=== PATIENT | male | born 1970 | race African-American/Black ===

== ENCOUNTER 2020-10-30 07:06 | Emergency (ER) | payer OTHER ==
[~2020-10-30] VITALS: Ht 175.3 cm; Wt 89.5 kg
[~2020-10-30 07:06] MED LIST: Diclofenac Sodium TP; GABA-585 PO; OXYC1TAB15 PO; PANT40TA77 PO
--- NOTE | 2020-10-30 08:03 | PHYS DOC ---
Past Medical History Past Medical History: No Pertinent History Past Surgical History: Other Additional Past Surgical Histo: FINGER Smoking Status: Never Smoker Alcohol Use: Occasionally General Adult EDM: Chief Complaint: FLU SYMPTOM HPI: HPI: Patient is a 50 year old male who presents with 5-6 days of cough, subjective fever, myalgias, headache, nausea/vomiting. Started to have some sore throat and hoarse voice for the past 2 days. He has been coughing up yellow phlegm. Occasionally the phlegm has a darker brown/black tinge to it. Occasionally has small specks of blood in it. He is not vaccinated for Covid. He denies any Covid contacts. He has not had a Covid test since symptoms started. He has some chest tightness only with coughing. Review of Systems: Review of Systems: Constitutional: Reports subjective fevers and chills. [] Eyes: Denies change in visual acuity. [] HENT: Reports nasal congestion and sore throat. [] Respiratory: Reports cough. +Chest tightness associated with cough. Denies shortness of breath. [] Cardiovascular: Denies palpitations or edema. [] GI: Reports nausea. Denies abdominal pain, vomiting, bloody stools or diarrhea. [] : Denies dysuria. [] Musculoskeletal: Reports diffuse myalgias. Denies back pain or joint pain. [] Integument: Denies rash. [] Neurologic: Reports headache.denies focal weakness or sensory changes. [] Endocrine: Denies polyuria or polydipsia. [] Lymphatic: Denies swollen glands. [] Psychiatric: Denies depression or anxiety. [] Heart Score: C/O Chest Pain: N/A Risk Factors: Risk Factors: DM, Current or recent (<one month) smoker, HTN, HLP, family history of CAD, obesity. Risk Scores: Score 0 - 3: 2.5% MACE over next 6 weeks - Discharge Home Score 4 - 6: 20.3% MACE over next 6 weeks - Admit for Clinical Observation Score 7 - 10: 72.7% MACE over next 6 weeks - Early Invasive Strategies Allergies: Allergies: Allergies Coded Allergies Type Severity Reaction Last Updated Verified No Known Drug Allergies 06/27/20 No Physical Exam: PE: Constitutional: Ill-appearing but not toxic. Mildly diaphoretic.. [] HENT: Normocephalic, atraumatic, bilateral external ears normal, oropharynx moist, no oral exudates, nose normal. [] Eyes: PERRLA, EOMI, conjunctiva normal, no discharge. [] Neck: Normal range of motion, no tenderness, supple, no stridor. [] Cardiovascular:Heart rate regular rhythm, no murmur [] Lungs & Thorax: Normal work of breathing. Sat 100%. Bilateral breath sounds clear to auscultation [] Abdomen: Soft. Nontender. No rebound or guarding.. [] Skin: Warm, dry, no erythema, no rash. [] Back: No tenderness, no CVA tenderness. [] Extremities: No tenderness, no cyanosis, no clubbing, ROM intact, no edema. [] Neurologic: Alert and oriented X 3, normal motor function, normal sensory function, no focal deficits noted. [] Psychologic: Affect normal, judgement normal, mood normal. [] EKG: EKG: SR 94. RAD. upsloping anterior ST segments. likely early repolarization. [] Radiology/Procedures: Radiology/Procedures: CXR [] Impression: [facility] [address] [place] [address] IMAGING REPORT Signed PATIENT: EZIO STONER ACCOUNT: [id number] : 1970 LOCATION: ER AGE: 50 SEX: M EXAM STATUS: REG ER ORD. PHYSICIAN: DEONNA RIZVI MD REASON: fever, cough PROCEDURE: CHEST AP ONLY XR CHEST 1V CLINICAL INDICATIONS: Reason: fever, cough COMPARISON: June 26, 2020. Findings: Bilateral interstitial lung infiltrates or pulmonary edema are seen. No pleural effusion or pneumothorax is seen. The heart size, pulmonary vasculature, mediastinum and both shane are stable. IMPRESSION: Bilateral interstitial lung infiltrates or pulmonary edema. Electronically signed by: Colten Hale MD (10/30/2020 8:18 AM) [id number] DICTATED and SIGNED BY: COLTEN HALE MD DATE: 10/30/20 [id number] Course & Med Decision Making: Course & Med Decision Making Pertinent Labs and Imaging studies reviewed. (See chart for details) Patient is a 50-year-old male with approximately 5 days of productive cough cough, subjective fever, myalgias. Certainly concerning for viral syndrome versus bacterial pneumonia. Will check labs including Covid swab, EKG, CXR. 0803 EKG SR, rate [address] segments anteriorly, likely early repolarization, but troponin added since we do not have a baseline EKG for comparison. 0841 CXR with mild bilateral interstitial infiltrates. COVID + on rapid swab. Mild leukopenia. Will not treat with abx at this time. His O2 sat is 100% and vitals are stable. He is stable for discharge at this time with expectant management. 09 Advanced Image Enhancement Disclaimer: Advanced Image Enhancement Disclaimer: This electronic medical record was generated, in whole or in part, using a voice recognition dictation system. Departure Departure Impression: Primary Impression: COVID-19 Disposition: HOME / SELF CARE / HOMELESS Condition: STABLE Referrals: NO PCP (PCP) Additional Instructions: You tested positive for Covid. You will need to self isolate for 10 days, and continue to isolate until you are 3 days without a fever and have improving symptoms without Tylenol or ibuprof en. In the meantime you can treat fevers and/or body aches with tylenol and ibuprofen. Please alternate between the two. -Tylenol 1000 mg every 6 hours (do not exceed 4000 mg in one day) -Ibuprofen 400 mg every 6 hours. Take with food. Do not take for more than 1 week. Unfortunately we do not have any proven treatments at this time. Hopefully this will improve on its own, but if you have difficulty breathing please return to emergency department for reevaluation. DEONNA RIZVI MD Oct 30, 2020 08:03
--- NOTE | 2020-10-30 08:21 | RAD ---
XR CHEST 1V CLINICAL INDICATIONS: Reason: fever, cough COMPARISON: June 26, 2020. Findings: Bilateral interstitial lung infiltrates or pulmonary edema are seen. No pleural effusion or pneumothorax is seen. The heart size, pulmonary vasculature, mediastinum and both shane are stable. IMPRESSION: Bilateral interstitial lung infiltrates or pulmonary edema. Electronically signed by: Austin Hale MD (10/30/2020 8:18 AM) [id number]
[2020-10-30 08:43] LABS: BASO % 0 % (0-3); EOS % 0 % (0-3); HEMATOCRIT 38.4 % (39.0-53.0); HEMOGLOBIN 12.5 g/dL (13.0-17.5); LYMPH # 0.8 x10^3/uL (1.0-4.8); LYMPH % 20 % (24-48); MEAN CORPUSCULAR HEMOGLOBIN 24 pg (25-35); MEAN CORPUSCULAR HGB CONC 33 g/dL (31-37); MEAN CORPUSCULAR VOLUME 72 fL (79-100); MONO # 0.6 x10^3/uL (0.0-1.1); MONO % 15 % (0-9); NEUT # 2.5 x10^3/uL (1.8-7.7); NEUT % 65 % (31-73); PLATELET COUNT 188 x10^3/uL (140-400); RED BLOOD COUNT 5.33 x10^6/uL (4.30-5.70); RED CELL DISTRIBUTION WIDTH 24.4 % (11.5-14.5); WHITE BLOOD COUNT 3.8 x10^3/uL (4.0-11.0)
[2020-10-30 08:53] LABS: CALCIUM 8.5 mg/dL (8.5-10.1); CREATININE 1.3 mg/dL (0.7-1.3); GFR 71.3; POTASSIUM 3.8 mmol/L (3.5-5.1)
[2020-10-30 08:59] LABS: ALBUMIN 3.6 g/dL (3.4-5.0); ALBUMIN/GLOBULIN RATIO 0.9 (1.0-1.7); TOTAL BILIRUBIN 0.5 mg/dL (0.2-1.0); TOTAL PROTEIN 7.8 g/dL (6.4-8.2)
[2020-10-30 09:17] LABS: ANISOCYTOSIS SLIGHT; HYPOCHROMIA SLIGHT; MICROCYTOSIS SLIGHT; PLT ESTIMATE ADEQUATE (ADEQUATE); POLYCHROMASIA SLIGHT; TEAR DROP CELLS OCC
[2020-10-30 09:19] LABS: OVALOCYTES OCC
[2020-10-30 10:06] VITALS: BP 153/90
== END 2020-10-30 10:16 | disposition home or self-care (01) ==
LOC: ER 07:06
DX: U07.1 COVID-19 (principal); R11.2 Nausea with vomiting, unspecified; J02.9 Acute pharyngitis, unspecified
CPT/HCPCS: 36415; 71045; 80053; 84484; 85025; 87426; 93005; 99285-25

== ENCOUNTER 2020-12-23 06:14 | Emergency (ER) | payer OTHER ==
[~2020-12-23] VITALS: Ht 175.3 cm; Wt 90.9 kg
--- NOTE | 2020-12-23 07:12 | RAD ---
Exam performed: Left fifth digit x-ray 3 views HISTORY: Pain and swelling. DATE OF SERVICE: 12/23/2020. COMPARISON: None available Findings and impression: AP, lateral and oblique views of the left fifth digit including AP view of the hand is obtained. Ther e is apparent joint space narrowing at the fifth distal interphalangeal joint which is perhaps appare nt due to slight flexion deformity seen on the lateral projection. This could be projectional or trau matic if there is a given history of such. There is no acute fracture. Diffuse soft tissue swelling i s seen. The remaining alignment appears preserved. No soft tissue foreign body identified. Electronically signed by: Nelly Lawrence MD (12/23/2020 7:10 AM) [facility]
[2020-12-23] MEDS ORDERED: NAPROXEN 500 MG TABLET PO ONE (07:30)
[2020-12-23] MEDS ORDERED: cloNIDine HCL 0.1 MG TABLET PO ONE (07:30)
[2020-12-23] MEDS ORDERED: NAPR-695 PO (07:38)
--- NOTE | 2020-12-23 07:39 | PHYS DOC ---
Past Medical History Past Medical History: No Pertinent History, Hypertension Additional Past Medical Histor: CHRONIC PAIN Past Surgical History: Other Additional Past Surgical Histo: FINGER Smoking Status: Never Smoker Alcohol Use: Occasionally Drug Use: None General Adult EDM: Chief Complaint: FINGER INJURY HPI: HPI: 50-year-old male presents with report of left little finger pain and swelling that has been ongoing intermittently for the past year. Patient reports he previously hit it while at work and has subsequently continued to reinjure the area. Patient reports now with some increased swelling that appears to make his finger deviate outward. Patient reports he has chronic issues with his legs and back for which he previously was prescribed Percocet. Patient reports he thinks he did not notice the pain in his finger because he was already taking the Percocet for his legs. Patient reports he does follow with orthopedics but has not talked to them about his finger yet. Denies any fever or chills. Review of Systems: Review of Systems: Constitutional: Denies fever or chills Eyes: Denies redness or eye pain HENT: Denies nasal congestion or sore throat Respiratory: Denies cough or shortness of breath Cardiovascular: Denies chest pain or palpitations GI: Denies abdominal pain, nausea, or vomiting : Denies dysuria or hematuria Musculoskeletal: Reports chronic leg pain and left pinky finger pain and swelling Integument: Denies rash or skin lesions Neurologic: Denies headache, focal weakness or sensory changes Complete systems were reviewed and found to be within normal limits, except as documented in this note. Heart Score: C/O Chest Pain: N/A Current Medications: Current Medications Medications (Trade) Dose Ordered Sig/[facility] Start Time Stop Time Status Last Admin Dose Admin Clonidine HCl (Catapres) 0.1 mg 1X ONCE 12/23/20 07:30 12/23/20 07:31 DC Naproxen (Naprosyn) 500 mg 1X ONCE 12/23/20 07:30 12/23/20 07:31 DC Allergies: Allergies: Allergies Coded Allergies Type Severity Reaction Last Updated Verified No Known Drug Allergies 06/27/20 No Physical Exam: PE: Constitutional: Well developed, well nourished, no acute distress, non-toxic appearance HENT: Normocephalic, atraumatic Eyes: Conjunctiva normal, no discharge Neck: Normal range of motion, supple Lungs & Thorax: No respiratory distress, equal chest rise and fall Skin: Warm, dry, no erythema, no rash Extremities: Left 5th finger PIP tenderness and pain, pain with ROM about joint, CR < 2 sec, left radial pulse +2 Neurologic: Alert and oriented X 3, no focal deficits noted Psychologic: Affect normal, judgment normal Current Patient Data: Vital Signs: Vital Signs Date Time Temp Pulse Resp B/P (MAP) Pulse Ox O2 Delivery O2 Flow Rate FiO2 12/23/20 06:15 98.0 91 20 219/148 (171) 98 Room Air 98.0 EKG: EKG: [] Radiology/Procedures: Radiology/Procedures: PROCEDURE: FINGER(S) LEFT Exam performed: Left fifth digit x-ray 3 views HISTORY: Pain and swelling. DATE OF SERVICE: 12/23/2020. COMPARISON: None available Findings and impression: AP, lateral and oblique views of the left fifth digit including AP view of the hand is obtained. There is apparent joint space narrowing at the fifth distal interphalangeal joint which is perhaps apparent due to slight flexion deformity seen on the lateral projection. This could be projectional or traumatic if there is a given history of such. There is no acute fracture. Diffuse soft tissue swelling is seen. The remaining alignment appears preserved. No soft tissue foreign body identified. Electronically signed by: Nelly Lawrence MD (12/23/2020 7:10 AM) [facility] Course & Med Decision Making: Course & Med Decision Making Pertinent Imaging studies reviewed. (See chart for details) Patient presents with report of pain and swelling to left pinky finger. Limb neurovascularly intact. Patient reports continued reinjury of PIP joint. X-ray obtained without acute fracture or dislocation. Soft tissue swelling noted. Naproxen provided. Splint applied. Patient also noted to have significantly elevated blood pressure upon arrival. Patient reports he did not take any of his medication this morning. Clonidine provided with some improvement. Patient advised to take his previously prescribed blood pressure medication upon returning home. Patient stable for discharge with outpatient follow-up with PCP/Orthopedics. Discussed findings and plan with patient, who acknowledges understanding and agreement. Jeet Disclaimer: Jeet Disclaimer: This electronic medical record was generated, in whole or in part, using a voice recognition dictation system. Splinting Splinting : Location: Left 5th finger Pre-Made Type: metal (aluminium finger splint) Pre-Proc Neuro Vasc Exam: normal Post-Proc Neuro Vasc Exam: normal, unchanged from pre-exam Departure Departure Impression: Primary Impression: Sprain of finger, left Qualified Codes: S63.637A - Sprain of interphalangeal joint of left little finger, initial encounter Additional Impressions: Arthritis Hypertension Qualified Codes: I10 - Essential (primary) hypertension Disposition: HOME / SELF CARE / HOMELESS Condition: STABLE Referrals: NO PCP (PCP) Patient Instructions: Arthritis, Nonspecific, Pjab-[id number], Finger Sprain, [id number], Hypertension, [id number] Additional Instructions: Please take your hypertension medication as prescribed. Follow closely with your doctor regarding any adjustment. Use finger splint for next week. Going forward may also use while at work to protect your finger. Scripts Naproxen (NAPROXEN) 375 Mg Tablet 375 MG PO TID PRN PRN for PAIN, #30 TAB Prov: EZIO CORDOBA DO 12/23/20 EZIO CORDOBA DO Dec 23, 2020 07:39
[2020-12-23 07:47] VITALS: BP 196/125
== END 2020-12-23 07:48 | disposition home or self-care (01) ==
LOC: ER 06:14
DX: S63.637A Sprain of interphalangeal joint of left little finger, initial encounter (principal); M19.042 Primary osteoarthritis, left hand; I10 Essential (primary) hypertension; G89.29 Other chronic pain; W22.8XXA Striking against or struck by other objects, initial encounter; Y93.89 Activity, other specified; Y92.69 Other specified industrial and construction area as the place of occurrence of the external cause; Y99.0 Civilian activity done for income or pay
CPT/HCPCS: 29130; 73140; 99283

== ENCOUNTER → 2021-05-28 | Outpatient (CLI) | payer OTHER ==
[~2021-05-28] MED LIST changes: +NAPR-695 PO
--- NOTE | 2021-05-28 14:17 | RAD ---
Exam Date: 05/28/2021 9:07 AM MRI LEFT LOWER EXTREMITY JOINT WITHOUT Indication: Reason: left knee pain / Spl. Instructions: / History: . TECHNIQUE: Routine multiplanar MR imaging of the knee was performed without contrast. FINDINGS: The body medial meniscus is extruded and demonstrates abnormal signal and morphology consistent with complex tearing. There is blunting of the body of the lateral meniscus consistent with a small radial tear. The anterior cruciate ligament, posterior cruciate ligament, medial collateral ligament, and lateral collateral ligament complex are intact. Patellofemoral extensor mechanism and popliteus tendon are w ithin normal limits. There is full-thickness chondral fissuring along the trochlear sulcus with mild subchondral degenerat leon marrow signal. Additional partial thickness chondral defects are seen in the patellofemoral comp artment. There is prominent diffuse chondral thinning in the medial compartment with extensive full- thickness or near full-thickness chondral loss. Cartilage in the lateral compartment is intact. Bone marrow demonstrates benign signal on all sequences. No acute fracture is seen. There is a large joint effusion.. There is no popliteal cyst. IMPRESSION: Complex tearing of the body medial meniscus with extrusion. Small radial tear involving the body of lateral meniscus. Extensive full-thickness or near full-thickness chondral loss in the medial compartment. Focal full- thickness chondral fissuring noted in the patellofemoral compartment. Large joint effusion noted. Electronically signed by: Servando Mcgraw MD (05/28/2021 2:14 PM) [id number]
== END ==
LOC: MRI 08:34
PROVIDERS: ATTEND Physician Assistant
DX: S83.232A Complex tear of medial meniscus, current injury, left knee, initial encounter (principal); S83.282A Other tear of lateral meniscus, current injury, left knee, initial encounter; M25.462 Effusion, left knee; M25.862 Other specified joint disorders, left knee; X58.XXXA Exposure to other specified factors, initial encounter; Y93.89 Activity, other specified; Y92.89 Other specified places as the place of occurrence of the external cause; Y99.8 Other external cause status
CPT/HCPCS: 73721

== ENCOUNTER 2021-07-22 20:48 | Emergency (ER) | payer OTHER ==
[~2021-07-22] VITALS: Ht 177.8 cm; Wt 93.1 kg
[2021-07-22] MEDS ORDERED: KETOROLAC 30 MG/ML VIAL. IM ONE (21:00)
[2021-07-22 21:02] VITALS: BP 151/92
--- NOTE | 2021-07-22 23:13 | RAD ---
Study: XR ELBOW COMPLETE_LEFT 3+VIEWS Indication: Elbow pain. Comparison: None. Findings: Elbow joint effusion with elevation of the anterior and posterior humeral fat pads. No appreciable fr acture. Alignment is anatomic. 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 Small olecranon process enthesophyte. S mall chronic bony excrescence off the medial aspect of the distal humeral shaft. Minimally prominent soft tissues the dorsum of the elbow but radiography is limited to determine if this is from edema or within normal limits for this patient. Impression: Elbow joint effusion but no fracture is identified and alignment is anatomic. 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 Electronically signed by: MELODIE MIGUEL MD (07/22/2021 11:11 PM) [facility]
--- NOTE | 2021-07-22 23:25 | PHYS DOC ---
Past Medical History Past Medical History: No Pertinent History, Hypertension Additional Past Medical Histor: CHRONIC PAIN Past Surgical History: No Surgical History Additional Past Surgical Histo: FINGER Smoking Status: Never Smoker Alcohol Use: None Drug Use: None General Adult EDM: Chief Complaint: UPPER EXTREMITY PAIN HPI: HPI: Patient is a 51 year old male states that he was walking and fell backwards hitting his left elbow against the wall. Patient states he has had pain for 2 days since. Pain with bending his elbow. States that he has been having trouble sleeping due to the soreness. States he has been taking [id number] Tylenol with minimal improvement. Review of Systems: Review of Systems: Constitutional: Denies fever or chills. [] Eyes: Denies change in visual acuity. [] HENT: Denies nasal congestion or sore throat. [] Respiratory: Denies cough or shortness of breath. [] Cardiovascular: Denies chest pain or edema. [] GI: Denies abdominal pain, nausea, vomiting, bloody stools or diarrhea. [] : Denies dysuria. [] Musculoskeletal: Denies back pain or joint pain. [] Integument: Denies rash. [] Neurologic: Denies headache, focal weakness or sensory changes. [] Endocrine: Denies polyuria or polydipsia. [] Lymphatic: Denies swollen glands. [] Psychiatric: Denies depression or anxiety. [] Heart Score: C/O Chest Pain: No Risk Factors: Risk Factors: DM, Current or recent (<one month) smoker, HTN, HLP, family history of CAD, obesity. Risk Scores: Score 0 - 3: 2.5% MACE over next 6 weeks - Discharge Home Score 4 - 6: 20.3% MACE over next 6 weeks - Admit for Clinical Observation Score 7 - 10: 72.7% MACE over next 6 weeks - Early Invasive Strategies Current Medications: Current Medications Medications (Trade) Dose Ordered Sig/Al Start Time Stop Time Status Last Admin Dose Admin Ketorolac Tromethamine (Toradol 30mg Vial) 30 mg 1X ONCE 07/22/21 21:00 07/22/21 21:02 DC 07/22/21 21:00 30 MG Allergies: Allergies: Allergies Coded Allergies Type Severity Reaction Last Updated Verified No Known Drug Allergies 07/22/21 No Physical Exam: PE: Constitutional: Well developed, well nourished, no acute distress, non-toxic appearance. [] HENT: Normocephalic, atraumatic, bilateral external ears normal, oropharynx moist, no oral exudates, nose normal. [] Eyes: PERRLA, EOMI, conjunctiva normal, no discharge. [] Neck: Normal range of motion, no tenderness, supple, no stridor. [] Cardiovascular:Heart rate regular rhythm, no murmur [] Lungs & Thorax: Bilateral breath sounds clear to auscultation [] Abdomen: Bowel sounds normal, soft, no tenderness, no masses, no pulsatile mas ses. [] Skin: Warm, dry, no erythema, no rash. [] Back: No tenderness, no CVA tenderness. [] Extremities: Decreased range of motion of his left elbow secondary to pain. Left elbow swelling and tenderness. Neurologic: Alert and oriented X 3, normal motor function, normal sensory function, no focal deficits noted. [] Psychologic: Affect normal, judgement normal, mood normal. [] Current Patient Data: Vital Signs: Vital Signs Date Time Temp Pulse Resp B/P (MAP) Pulse Ox O2 Delivery O2 Flow Rate FiO2 07/22/21 21:02 98.2 95 18 151/92 (111) 98 Room Air 98.2 EKG: EKG: [] Radiology/Procedures: Radiology/Procedures: []PATIENT: EZIO STONER TACCOUNT: [id number]#: [id number] : 1970 LOCATION: ER AGE: 51 SEX: M EXAM STATUS: REG ER ORD. PHYSICIAN: CHACHO SIMS DO REASON: pain PROCEDURE: ELBOW LEFT 3V Study: XR ELBOW COMPLETE_LEFT 3+VIEWS Indication: Elbow pain. Comparison: None. Findings: Elbow joint effusion with elevation of the anterior and posterior humeral fat pads. No appreciable fracture. Alignment is anatomic. 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 Small olecranon process enthesophyte. Small chronic bony excrescence off the medial aspect of the distal humeral shaft. Minimally prominent soft tissues the dorsum of the elbow but radiography is limited to determine if this is from edema or within normal limits for this patient. Impression: Elbow joint effusion but no fracture is identified and alignment is anatomic. 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 Course & Med Decision Making: Course & Med Decision Making Pertinent Labs and Imaging studies reviewed. (See chart for details) [] Patient reports moderate pain improvement with the medication. States he is able to move his elbow and rest. Patient will follow up with orthopedics in the outpatient setting. Jeet Disclaimer: Jeet Disclaimer: This electronic medical record was generated, in whole or in part, using a voice recognition dictation system. Departure Departure Referrals: NO PCP (PCP) Scripts Naproxen (NAPROSYN) 500 Mg Tablet 1 TAB PO BID for pain, #20 TAB Prov: CHACHO SIMS DO 07/22/21 CHACHO SIMS DO Jul 22, 2021 23:25
[2021-07-22] MEDS ORDERED: NAPR-683 PO (23:27)
[2021-07-22] MEDS ORDERED: DEXAMETHASONE SOD PHOS 20 MG/5 ML VIAL. IV ONE (23:30)
== END 2021-07-23 | disposition home or self-care (01) ==
LOC: ER 20:48
DX: M25.522 Pain in left elbow (principal); G89.29 Other chronic pain; G89.11 Acute pain due to trauma; I10 Essential (primary) hypertension; W18.09XA Striking against other object with subsequent fall, initial encounter; Y93.01 Activity, walking, marching and hiking; Y92.89 Other specified places as the place of occurrence of the external cause; Y99.8 Other external cause status
CPT/HCPCS: 73080; 96372; 99283; J1885